=== PATIENT | female | born 1985 ===

== ENCOUNTER 2018-04-16 15:53 | Emergency (ER) | payer MEDICAID, OTHER, SELFPAY ==
[2018-04-16 15:53] VITALS: BMI 28.2
[2018-04-16 16:14] VITALS: BP 130/66; PULSE 75; RESP 16; TEMP 98.2; O2SAT 96
--- NOTE | 2018-04-16 17:00 | ED PDOC ---
History of Present Illness History of Present Illness: 33 year old female with no significant past medical history who is presenting to the Ed for evaluation of body aches onset 1 week ago associated with chills. Patient states that she noted swelling to left arm today which she is most concerned about. She denies any cough, sore throat, or flu contacts and states that she doesnt think she has the flu. Of note, patient does not offer any other medical complaints at this time. PMD: none provided HPI: Influenza Time Seen by Provider: 04/16/18 16:45 Chief Complaint: Flu-like Symptoms Chief Complaint (Provider): Flu-like Symptoms History Per: Patient Exam Limitations: no limitations Onset/Duration Of Symptoms: Days Symptoms include: bodyaches. denies: sore throat, cough Past Medical History Reviewed: Historical Data, Nursing Documentation, Vital Signs Vital Signs: Last Vital Signs Temp 98.2 F 04/16/18 16:13 Pulse 75 04/16/18 16:13 Resp 16 04/16/18 16:13 BP 130/66 04/16/18 16:13 Pulse Ox 96 04/16/18 16:13 - Medical History PMH: No Chronic Diseases - Surgical History Surgical History: - Family History Family History: States: Unknown Family Hx - Social History Current smoker - smoking cessation education provided: No Alcohol: None Drugs: Denies - Home Medications Home Medications: Ambulatory Orders Medication Instructions Recorded Vit No.126/Iron/Folic 1 tab PO DAILY 01/12/16 [Prenavite] RX: Ibuprofen [Motrin Tab] 600 mg PO Q6H PRN #30 tab 01/15/16 RX: oxyCODONE/Acetaminophen 1 tab PO Q4 PRN #20 tab 01/15/16 [Percocet 5/325 mg Tab] Ibuprofen [Motrin] 600 mg PO Q8 PRN #21 tab 04/16/18 - Allergies Allergies/Adverse Reactions: Allergies Allergy/AdvReac Type Severity Reaction Status Date / Time No Known Allergies Allergy Verified 06/01/15 17:53 Review of Systems ROS Statement: Except As Marked, All Systems Reviewed And Found Negative Constitutional: Positive for: Other (body aches ) ENT: Negative for: Throat Pain Respiratory: Negative for: Cough Musculoskeletal: Positive for: Other (arm swelling) Physical Exam - Reviewed Nursing Documentation Reviewed: Yes Vital Signs Reviewed: Yes - Physical Exam Appears: Positive for: Well, Non-toxic, No Acute Distress Head Exam: Positive for: ATRAUMATIC, NORMAL INSPECTION, NORMOCEPHALIC Skin: Positive for: Normal Color, Warm, DRY Eye Exam: Positive for: Normal appearance ENT: Positive for: Normal ENT Inspection Cardiovascular/Chest: Positive for: Regular Rate, Rhythm. Negative for: Murmur Respiratory: Positive for: Normal Breath Sounds. Negative for: Respiratory Distress Extremity: Positive for: Normal ROM, Swelling (3 cm lipoma to proximal aspect of arm, no surrounding erythema or fluctuance ). Negative for: Deformity Neurologic/Psych: Positive for: Alert, Oriented. Negative for: Motor/Sensory Deficits Medical Decision Making Medical Decision Making: Time: 16:50 Plan: --Surgical Consult Upon provider reevaluation patient is feeling better, is medically stable, and requires no further treatment in the ED at this time. Patient will be discharged home. Counseling was provided and all questions were answered regarding diagnosis and need for follow up with PMD. There is agreement to discharge plan. Return if symptoms persist or worsen. Scribe Attestation: Documented by, Yesy Tamayo acting as a scribe for Eli Faulkner PA-C. Provider Scribe Attestation: All medical record entries made by the Scribe were at my direction and personally dictated by me. I have reviewed the chart and agree that the record accurately reflects my personal performance of the history, physical exam, medical decision making, and the department course for this patient. I have also personally directed, reviewed, and agree with the discharge instructions and disposition. - Laboratory Results Urine POC: Negative - ECG O2 Sat by Pulse Oximetry: 96 (RA) Pulse Ox Interpretation: Normal Disposition - Clinical Impression Clinical Impression: Lipoma - Patient ED Disposition Is Patient to be Admitted: No - Disposition Referrals: [facility] [Outside] Freddie Plunkett MD [Staff Provider] - Disposition: Routine/Home Disposition Time: 17:06 Condition: FAIR Prescriptions: Ibuprofen [Motrin] 600 mg PO Q8 PRN #21 tab PRN Reason: Pain, Moderate (4-7) Instructions: Lipoma Print Language: UKRAINIAN
== END 2018-04-16 17:20 | disposition home or self-care (01) ==
LOC: H.ER 15:53
DX: D17.22 Benign lipomatous neoplasm of skin and subcutaneous tissue of left arm (principal); M79.10 Myalgia, unspecified site